=== PATIENT | male | born 1980 | race Caucasian/White ===

== ENCOUNTER → 2016-05-31 | Outpatient (CLI) | payer BC ==
--- NOTE | 2016-06-01 10:56 | SLEEP ---
DATE OF STUDY: 05/31/2016 ATTENDING PHYSICIAN: Dr. Brantley. REFERRING PHYSICIAN: Javier Maki M.D. The patient is a 35 years old, who weighs 250 pounds with a BMI of 32. The patient was seen in the office for symptoms highly suggestive of sleep apnea. Sleep study was performed at [facility]. During the night study, the patient spent 417 minutes in bed and slept for 368 minutes with a sleep efficiency of 88%. Sleep latency was 7 minutes with a REM latency of 240 minutes. Overall, sleep architecture showed a slightly increased stage I sleep, normal stage II sleep, normal slow wave and increased REM sleep. During the initial diagnostic portion of the study, the patient slept for 130 minutes. During this time, there were 59 obstructive apneas, no mixed or central apneas. There were 161 hypopneas. The patient's apnea hypopnea index was 102 per hour. The patient's supine index 99 per hour. REM sleep was not seen during the diagnostic portion of the study. Review of nocturnal oximetry study revealed a mean oxygen saturation of 92% with the lowest of 60%. 23% of time oxygen saturation remained between 80% and 89% and 14% of time between 70 and 79%. EKG monitoring revealed normal sinus rhythm, average heart rate was 91 beats per minute. PLMS were seen at index of 1 per hour and none caused EEG arousals. The patient met the criteria for CPAP initiation. It was started at 7 cm of water and titrated up to 14 cm of water. At the final pressure, the patient had 51 minutes of sleep. Supine sleep was seen throughout as well as long REM period was observed at this pressure. The patient's AHI was reduced to 0 per hour and oxygen saturations remained above 93%. The patient used a medium size full face mask. IMPRESSION: 1. Severe sleep apnea-hypopnea syndrome with an AHI of 102 per hour. 2. Severe nocturnal hypoxia secondary to obstructive sleep apnea, but completely resolved with CPAP. 3. No clinically significant PLMS. RECOMMENDATIONS: 1. CPAP at 14 cm of water completely eliminated patient's sleep apnea and should be used on a nightly basis. 2. Follow up in 4-6 weeks to assess compliance with CPAP and to document clinical improvement. 3. Weight loss is strongly advised. 4. Avoid [employer] depressants. 5. Caution regarding driving until symptoms of sleep apnea resolved with the use of CPAP. 6. The patient used a medium size full face mask. JAVIER MAKI MD DR: MAYRA/austen JOB#: [id number] / [id number] .Fercho CHARLES MD
== END | disposition home or self-care (01) ==
LOC: SLPLAB 20:13
PROVIDERS: ATTEND Internal Medicine Critical Care Medicine
DX: G47.33 Obstructive sleep apnea (adult) (pediatric) (principal); G47.10 Hypersomnia, unspecified
CPT/HCPCS: 95810